=== PATIENT | male | born 1945 | race Hispanic/Latino ===

== ENCOUNTER 2018-02-28 08:35 | Day surgery (SDC) | payer MEDICARE ==
[~2018-02-28 08:35] MED LIST: NACL 0.9% 1000 ML 1,000 ML IV SCH; VANCOMYCIN/NS 1 GM/250 ML 1 GM/250 ML BAG IV NR
[2018-02-28] MEDS ORDERED: VANCOMYCIN 2,000 MG in NACL 0.9% 500 ML 500 ML IV ONE (09:30)
[2018-02-28 09:38] LABS: Basophils # (Auto) 0.1 K/mm3 (0.0-0.1); Basophils % (Auto) 1.1 % (0.0-1.8); Eosinophils # (Auto) 0.2 K/mm3 (0.0-0.4); Eosinophils % (Auto) 3.2 % (0.0-4.3); Hematocrit 37.4 % (35.5-45.6); Hemoglobin 12.5 gm/dl (11.8-15.2); Lymphocytes # (Auto) 1.1 K/mm3 (1.2-5.4); Lymphocytes % (Auto) 20.7 % (13.4-35.0); Mean Corpuscular HGB Conc 33 % (32-34); Mean Corpuscular Hemoglobin 31 pg (28-32); Mean Corpuscular Volume 92 fl (84-94); Monocytes # (Auto) 0.6 K/mm3 (0.0-0.8); Monocytes % (Auto) 11.7 % (0.0-7.3); Platelet Count 208 K/mm3 (140-440); Red Blood Count 4.05 M/mm3 (3.65-5.03); Red Cell Distribution Width 15.4 % (13.2-15.2)
[2018-02-28 09:51] LABS: BUN/Creatinine Ratio 19; Blood Urea Nitrogen 15 mg/dL (9-20); Calcium 9.3 mg/dL (8.4-10.2); Hemolysis Index 1
[2018-02-28 09:54] LABS: INR 0.97 (0.87-1.13)
[2018-02-28 09:55] LABS: Partial Thromboplastin Time 27.7 Sec. (24.2-36.6)
[2018-02-28] MEDS ORDERED: HEPARIN/NS 5000 UNIT/500ML(CATH LAB) 1,000 ML IR ONE (14:15)
[2018-02-28] MEDS ORDERED: HEPARIN 10,000 UNITS/10 ML ONE (14:15)
[2018-02-28] MEDS ORDERED: VERSED ONE (14:15)
[2018-02-28] MEDS ORDERED: ANCEF/STERILE WATER 2 GM/20 ML 2 GM/20 ML SYRINGE IV ONE (14:47)
[2018-02-28] MEDS: SUBLIMAZE ONE ×2 (15:00→15:40)
[2018-02-28] MEDS: XYLOCAINE 2% INFILTRATI ONE ×3 (15:05→15:12)
[2018-02-28] MEDS ORDERED: SUBLIMAZE ONE (15:48)
--- NOTE | 2018-02-28 16:45 | Operative Report ---
Operative Report Operative Report: Operative note: Date: 02/28/2018 Preoperative diagnosis:. This insufficiency worse on the right side Postoperative diagnosis: Same. Operation: Bilateral ultrasound-guided venous access, upper thigh great saphenous vein on the left side and femoral vein proximally on the right side. Bilateral venogram. Intravascular ultrasound of distal IVC, bilateral common and external iliac, common femoral veins. Bilateral common and external iliac stenting with 18 x 90 Wallstent. Surgeon: Argentina Hernandez. Asst.: none Anesthesia: Gen. EBL: Minimal Findings: Bilateral common and external iliac stenosis more pronounced on the right side Indications: Patient was suffering from venous insufficiency which was more pronounced on the right side. The patient had a radiating undergone greater saphenous vein ablation, however continue to have significant laxity edema and venous stasis dermatitis. Patient was discussed performing a venogram as a next step. He was explained risks, benefits and alternatives of procedure and chose to proceed and signed informed consent. Operative details: Patient was brought to the Supervisor Cyt[facility] and placed in supine position. Bilateral femoral area and upper thigh medially were prepped and draped in sterile fashion. Timeout was performed. Right femoral vein proximally was accessed under ultrasound guidance with micropuncture needle and exchanged the micropuncture sheath. That was upsized to 5 [place] access sheath. Next, left axis was performed in the great saphenous vein was micropuncture needle and that was upsized to micropuncture sheath and then 5 [place] access sheath. Venogram was performed bilaterally noting any of the contrast on the right common iliac side. Bilateral wire access was done with Cuevas on the right side and J-wire and left side. Implants for intervention on the right side definitely 5 [place] sheath was upsized to 10 [place] sheath. On the left side it was upsized to 8 [place] access she is in plan for intravascular ultrasound.IVUS was done noting a lot of scarring and stenosis of the right side and some stenosis of the left side. At this point stenosis points were marked on the screen as well as venous confluence. Patient was heparinized with 3000 units of heparin. Bilateral Wallstents were deployed size 18 x 90. Then balloon angioplasty was 16 mm [place] balloon was performed inside stents.IVUS was done bilaterally noting good stent upposition. Wires were removed and sheath were pulled, manual pressure held. Pressure dressing were applied. Patient tolerated procedure well.
--- NOTE | 2018-02-28 16:55 | Short Stay Summary ---
Short Stay Documentation Date of service: 02/28/18 - History H&P: obtained from office Past Surgical History: Other (prostate cancer, s/p prostatectomy and radiation) - Allergies and Medications Current Medications: Allergies No Known Allergies Allergy (Unverified 02/28/18 08:35) Home Medications Medication Instructions Recorded Confirmed Last Taken Type Dorzolamide HCl/Pf [Dorzolamide 2% 10 ml OP 02/28/18 02/27/18 History Eye Drop] 1 drop Latanoprost 0.005% [Xalatan 0.005%] 1 drop OP QPM 02/28/18 02/28/18 02/27/18 History 1 drop Levothyroxine [Synthroid] 75 mcg PO QAM 02/28/18 02/28/18 02/27/18 History 75 mcg Lovastatin [Altoprev] 40 mg PO 02/28/18 02/27/18 History 40 mg amLODIPine [Norvasc] 10 mg PO DAILY 02/28/18 02/28/18 02/28/18 06:00 History 10 mg hydroCHLOROthiazide [HCTZ] 25 mg PO QDAY 02/28/18 02/28/18 02/27/18 History 25 mg Active Medications Sodium Chloride (Nacl 0.9% 1000 Ml) 1,000 mls @ 42 mls/hr IV DIRECT MARIA E Last Admin: 02/28/18 09:41 Dose: 42 mls/hr - Physical exam Extremities: abnormal (right Le edema and venous stasis dermatatis) - Brief post op/procedure progress note Date of procedure: 02/28/18 Pre-op diagnosis: chronic venous insufficiency Post-op diagnosis: same Procedure: Bilateral venogram, intravascular ultrasound and deployment of 18 x 90 Wallstent Anesthesia: MAC Findings: Significant stenosis on the right common and external iliac knee Surgeon: AHSAN ALLEN Estimated blood loss: minimal Pathology: none Condition: stable - Disposition Condition at discharge: Good Disposition: [id number] TO HOME OR SELFCARE Short Stay Discharge Plan Diet: regular Wound: remove dressing (tomorrow) Follow up with: SOL CAMERON MD [Primary Care Provider] - 7 Days AHSAN ALLEN DO [Staff Physician] - 14 Days Prescriptions: Apixaban [Eliquis] 2.5 mg PO BID #60 tablet HYDROcodone/APAP 7.5-325 [Paron 7.5/325] 1 each PO Q4H PRN #30 tablet PRN Reason: Pain , Severe (7-10)
[2018-02-28 19:08] VITALS: BP 168/79
== END 2018-02-28 17:45 | disposition home or self-care (01) ==
LOC: CATHLABREC 08:35
PROVIDERS: ATTEND Surgery Vascular Surgery
DX: I87.1 Compression of vein (principal); I70.8 Atherosclerosis of other arteries; I10 Essential (primary) hypertension; E78.5 Hyperlipidemia, unspecified; E06.9 Thyroiditis, unspecified; R63.5 Abnormal weight gain; Z68.42 Body mass index [BMI] 45.0-49.9, adult; Z85.46 Personal history of malignant neoplasm of prostate; Z98.890 Other specified postprocedural states; Z79.899 Other long term (current) drug therapy; Z79.01 Long term (current) use of anticoagulants
CPT/HCPCS: 36415; 37238; 37239; 37252; 37253; 75822; 76937; 80048; 85025; 85610; 85730; 99156; 99157; C1725; C1753; C1769; C1876; C1894; J0690; J1644; J2250; J3010; J3370; J7030; J7040; Q9967